=== PATIENT | female | born 1975 | race Two or more races ===

== ENCOUNTER 2019-01-17 07:27 | Emergency (ER) | payer MEDICAID, OTHER ==
[~2019-01-17] VITALS: Ht 30.5 cm; Wt 77.1 kg
[2019-01-17] MEDS ORDERED: LORAZEPAM MDV 2MG/ML 10 ML IV ONE (07:29)
[2019-01-17] MEDS ORDERED: NALOXONE HCL 0.4 MG/ML VIAL ONE (07:29)
[2019-01-17] MEDS ORDERED: ETOMIDATE (2MG/ML) 20ML VIAL IV ONE ×2 (07:30→07:45)
[2019-01-17] MEDS ORDERED: SUCCINYLCHOLINE CHLORIDE 20 MG/ML 10ML VIAL IV ONE ×2 (07:30→07:45)
[2019-01-17] MEDS ORDERED: EPINEPHrine HCL 1 MG/10 ML SYRG IV ONE (07:32)
[2019-01-17] MEDS ORDERED: SODIUM BICARBONATE 8.4% INJ 50ML SYRINGE IV ONE (07:32)
[2019-01-17] MEDS ORDERED: LORazepam 2MG/ML-1ML VIAL IV ONE (07:45)
[2019-01-17] MEDS ORDERED: AZITHROMYCIN 500MG/ 250ML 250 ML IV ONE (07:45)
[2019-01-17] MEDS ORDERED: cefTRIAXone 1GM/50ML D5W 50 ML IV ONE (07:45)
[2019-01-17] MEDS ORDERED: FUROSEMIDE 40 MG/4 ML VIAL IV ONE (07:45)
[2019-01-17] MEDS ORDERED: MIDAZOLAM DRIP 50 mg/50mL 50 ML IV SCH (07:45)
[2019-01-17] MEDS ORDERED: NALOXONE HCL 0.4 MG/ML VIAL SUBCUT ONE (07:45)
[2019-01-17 07:48] LABS: Eosinophils # (auto) 0.4 uL; Hematocrit 42.4 % (36.0-46.0); Lymphocytes % (auto) 45.9 % (10.0-50.0); Mean Corpuscular Volume 83.9 fL (80.0-100.0); Monocytes # (auto) 1.1 uL; Nucleated Red Blood Cells % 0.1 %; Red Blood Cells 5.05 10^6/uL (4.0-5.20)
[2019-01-17] MEDS ORDERED: MIDAZOLAM DRIP 50 mg/50mL 50 ML IV ONE (07:48)
[2019-01-17 07:50] LABS: Basophils # (auto) 0.1 uL; Basophils % (auto) 0.5 % (0.0-2.0); Hemoglobin 13.3 g/dL (12.2-16.2); Lymphocytes # (auto) 6.2 uL; Mean Corpuscular Hemoglobin 26.3 pg (28.0-32.0); Mean Corpuscular Hgb Conc. 31.4 g/dL (32.0-36.0); Monocytes % (auto) 7.9 % (0.0-12.0); Neutrophils # (auto) 5.7 uL; Neutrophils % (auto) 42.7 % (37.0-80.0); Platelet Count (auto) 369 10^3/uL (140-450); Red Cell Distribution Width 15.1 % (11.8-14.3); White Blood Cell 13.4 10^3/uL (4.4-10.8)
[2019-01-17] MEDS ORDERED: NALOXONE HCL 0.4 MG/ML VIAL IV ONE (08:00)
[2019-01-17] MEDS ORDERED: PROPOFOL 100 ML IV ONE (08:11)
[2019-01-17 08:13] LABS: Salicylate < 1.7 mg/dL (2.8-20.0)
[2019-01-17 08:15] VITALS: BP 177/123
[2019-01-17] MEDS ORDERED: PROPOFOL 100 ML IV SCH (08:17)
[2019-01-17 08:18] LABS: Acetaminophen < 2.0 ug/mL (10-30)
[2019-01-17 08:24] LABS: Alanine Aminotransferase 18 U/L (13-56); Aspartate Aminotransferase 15 U/L (15-37); Bilirubin, Total 0.3 mg/dL (0.2-1.0); GFR African American 85 mL/min; GFR Non-African American 70 mL/min
[2019-01-17 08:35] LABS: Alkaline Phosphatase 110 U/L (45-117)
[2019-01-17] MEDS ORDERED: NICARDIPINE 25MG/250ML BAG KIT 250 ML IV SCH (08:38)
[2019-01-17 08:42] LABS: Albumin 3.1 g/dL (3.4-5.0); Anion Gap 12 (5-15); BUN/Creatinine Ratio 10.9; Blood Urea Nitrogen 10 mg/dL (7-18); Calcium 7.6 mg/dL (8.5-10.1); Carbon Dioxide 19 mmol/L (21-32); Chloride 108 mmol/L (98-107); Glucose 177 mg/dL (74-106); Magnesium 2.4 mg/dL (1.6-2.6); Potassium 3.6 mmol/L (3.5-5.1); Sodium 139 mmol/L (136-145)
[2019-01-17] MEDS ORDERED: NICARDIPINE 25MG/250ML BAG KIT 250 ML IV ONE (08:42)
[2019-01-17 09:15] VITALS: BP 135/97
[2019-01-17] MEDS ORDERED: METOPROLOL TARTRATE 1MG/1ML-5ML VIAL IV ONE ×2 (09:18→09:30)
== END 2019-01-17 09:50 | disposition short-term general hospital (02) ==
LOC: EDBD 07:27 → ER 07:31
DX: I60.9 Nontraumatic subarachnoid hemorrhage, unspecified (principal); R41.82 Altered mental status, unspecified; I10 Essential (primary) hypertension
CPT/HCPCS: 31500; 36415; 36600; 70450; 71045; 71250; 80053; 80329; 82805; 83735; 84484; 85025; 87040; 87070; 87205; 93005; 96365; 96366; 96368; 96375; 99291; J0171; J0330; J0456; J0696; J1940; J2060; J2250; J2310; J2704; 94002